=== PATIENT | female | born 1960 | race Caucasian/White ===

== ENCOUNTER 2023-11-11 14:15 | Inpatient (IN) | payer MEDICAID ==
[2023-11-11 14:36] LABS: BASOPHILS ABSOLUTE AUTO 0.07 K/uL (0.00-0.20); BASOPHILS PERCENT AUTO 1.1 % (0.0-2.0); EOSINOPHILS ABSOLUTE AUTO 0.05 K/uL (0.00-0.50); EOSINOPHILS PERCENT AUTO 0.8 % (0.0-5.0); HEMATOCRIT 44.8 % (34.0-46.0); HEMOGLOBIN 15.1 g/dL (11.7-15.5); LYMPHOCYTES ABSOLUTE AUTO 1.81 K/uL (0.50-3.50); LYMPHOCYTES PERCENT AUTO 27.8 % (10.0-50.0); MEAN CORPUSCULAR HEMOGLOBIN 30.9 pg (28.2-33.3); MEAN CORPUSCULAR HGB CONC 33.7 g/dL (31.7-36.0); MEAN CORPUSCULAR VOLUME 91.8 fL (84.0-98.0); MONOCYTES ABSOLUTE AUTO 0.42 K/uL (0.00-1.00); MONOCYTES PERCENT AUTO 6.5 % (2.0-14.0); NEUTROPHILS ABSOLUTE AUTO 4.16 K/uL (1.40-7.00); NEUTROPHILS PERCENT AUTO 63.8 % (45.0-80.0); PLATELET COUNT,PLT 268 K/uL (150-350); RED BLOOD CELL COUNT 4.88 M/uL (3.77-5.09); RED CELL DISTRIBUTION WIDTH 14.6 % (11.2-14.1); WHITE BLOOD CELL COUNT,WBC 6.5 K/uL (4.0-10.2)
[2023-11-11] MEDS: niCARdipine/Normal Saline 20 MG in Premix Bag 1 BAG IV SCH (14:50)
[2023-11-11 14:51] LABS: PROTHROMBIN TIME 10.2 SEC (9.0-11.1)
[2023-11-11 15:06] LABS: ALANINE AMINOTRANSFERASE,ALT 15 U/L (12-78); ALKALINE PHOSPHATASE 97 IU/L (46-116); ANION GAP 11.9 meq/L (7-15); ASPARTATE AMNIOTRANSFERASE,AST 14 U/L (15-37); BILIRUBIN TOTAL 0.2 mg/dL (0.2-1.0); BLOOD UREA NITROGEN,BUN 8 mg/dL (7-18); CALCIUM 9.4 mg/dL (8.5-10.1); CARBON DIOXIDE,CO2 25.1 mmol/L (21.0-32.0); CHLORIDE,CL 101 mmol/L (98-107); GLUCOSE RANDOM 94 mg/dL (70-99); MAGNESIUM 1.9 mg/dL (1.8-2.4); POTASSIUM,K 3.7 mmol/L (3.5-5.1); PRO B-TYPE NATRIUR PEPT,BNPPRO 483 pg/mL (0-125); PROTEIN TOTAL,TP 8.3 g/dL (6.4-8.2); SODIUM,NA 138 mmol/L (136-145)
[2023-11-11 15:08] LABS: ESTIMATED GFR 64 mL/min (>=60)
[2023-11-11 15:08] LABS: APPEARANCE,URINE CLEAR; BILIRUBIN,URINE NEGATIVE (NEGATIVE); COLOR,URINE YELLOW; GLUCOSE,URINE NEGATIVE (NEGATIVE); KETONES,URINE NEGATIVE (NEGATIVE); LEUKOCYTE ESTERASE,URINE TRACE (NEGATIVE); NITRITE,URINE NEGATIVE (NEGATIVE); OCCULT BLOOD,URINE TRACE-INTACT (NEGATIVE); PH,URINE 5.5 (5.0-9.0); PROTEIN,URINE NEGATIVE (NEGATIVE); UROBILINOGEN,URINE 0.2 E.U./dL (0.2-1.0)
[2023-11-11 15:21] LABS: BACTERIA,URINE FEW /HPF (NONE TO FEW); RBC,URINE 0-5 /HPF
[2023-11-11] MEDS ORDERED: Ketorolac 15 MG/ML SDV IVPUSH PRN (16:39)
[2023-11-11] MEDS ORDERED: Ondansetron 4 MG Tab.DIS PO PRN (16:39)
[2023-11-11] MEDS ORDERED: Acetaminophen 325 MG Tab PO PRN (16:39)
[2023-11-11] MEDS ORDERED: Melatonin 3 MG Tab PO PRN (16:39)
[2023-11-11] MEDS ORDERED: LORazepam 2 MG/ML SDV IV PRN (16:39)
[2023-11-11] MEDS: NIFEdipine 30 MG Tab.ER PO SCH ×2 (20:52→23:00)
[2023-11-12 07:40] LABS: BASOPHILS ABSOLUTE AUTO 0.07 K/uL (0.00-0.20); BASOPHILS PERCENT AUTO 1.1 % (0.0-2.0); EOSINOPHILS ABSOLUTE AUTO 0.11 K/uL (0.00-0.50); EOSINOPHILS PERCENT AUTO 1.7 % (0.0-5.0); HEMATOCRIT 41.8 % (34.0-46.0); LYMPHOCYTES ABSOLUTE AUTO 1.98 K/uL (0.50-3.50); LYMPHOCYTES PERCENT AUTO 30.2 % (10.0-50.0); MEAN CORPUSCULAR HEMOGLOBIN 30.8 pg (28.2-33.3); MEAN CORPUSCULAR HGB CONC 33.5 g/dL (31.7-36.0); MEAN CORPUSCULAR VOLUME 92.1 fL (84.0-98.0); MONOCYTES ABSOLUTE AUTO 0.56 K/uL (0.00-1.00); MONOCYTES PERCENT AUTO 8.5 % (2.0-14.0); NEUTROPHILS ABSOLUTE AUTO 3.84 K/uL (1.40-7.00); NEUTROPHILS PERCENT AUTO 58.5 % (45.0-80.0); PLATELET COUNT,PLT 252 K/uL (150-350); RED BLOOD CELL COUNT 4.54 M/uL (3.77-5.09); RED CELL DISTRIBUTION WIDTH 14.7 % (11.2-14.1); WHITE BLOOD CELL COUNT,WBC 6.6 K/uL (4.0-10.2)
[2023-11-12 08:03] LABS: CALCIUM 8.9 mg/dL (8.5-10.1); CARBON DIOXIDE,CO2 23.9 mmol/L (21.0-32.0); CREATININE 0.83 mg/dL (0.51-1.17); EST CRCL DRUG DOSING (CG) 71.8 mL/min; POTASSIUM,K 3.9 mmol/L (3.5-5.1)
[2023-11-12] MEDS: Lisinopril 10 MG Tab PO SCH (12:41)
[2023-11-12] MEDS: Hydrochlorothiazide 25 MG Tab PO SCH (16:54)
[2023-11-12] MEDS: Amoxicillin/Clavulanate K 875-125 MG Tab PO SCH (19:39)
[2023-11-12] MEDS: Sodium Chloride 0.9% 10 ML Syringe FLUSH PRN (19:40)
[2023-11-12] MEDS: NIFEdipine 30 MG Tab.ER PO ONE (22:36)
[2023-11-12] MEDS: NIFEdipine 30 MG Tab.ER ONE (22:42)
[2023-11-13] MEDS: hydrALAZINE 10 MG Tab PO ONE (01:44)
[2023-11-13 02:55] LABS: AMPHETAMINES SCREEN, URINE NEGATIVE (NEGATIVE); BARBITURATE SCREEN,URINE NEGATIVE (NEGATIVE); BENZODIAZEPINES SCREEN,URINE NEGATIVE (NEGATIVE); BUPRENORPHINE SCREEN,URINE NEGATIVE (NEGATIVE); COCAINE METABOLITES,URINE NEGATIVE (NEGATIVE); EDDP,URINE SCREEN NEGATIVE (NEGATIVE); METHAMPHETAMINES SCREEN, URINE NEGATIVE (NEGATIVE); OXYCODONE SCREEN,URINE NEGATIVE (NEGATIVE); TCA SCREEN,URINE NEGATIVE (NEGATIVE); THC SCREEN,URINE 50 NG/ML NEGATIVE (NEGATIVE)
[2023-11-13] MEDS: Chlorthalidone 25 MG Tab PO SCH (07:57)
[2023-11-13 08:12] LABS: BASOPHILS ABSOLUTE AUTO 0.06 K/uL (0.00-0.20); BASOPHILS PERCENT AUTO 0.9 % (0.0-2.0); EOSINOPHILS ABSOLUTE AUTO 0.08 K/uL (0.00-0.50); EOSINOPHILS PERCENT AUTO 1.2 % (0.0-5.0); HEMATOCRIT 41.5 % (34.0-46.0); HEMOGLOBIN 14.1 g/dL (11.7-15.5); LYMPHOCYTES ABSOLUTE AUTO 1.92 K/uL (0.50-3.50); LYMPHOCYTES PERCENT AUTO 29.7 % (10.0-50.0); MEAN CORPUSCULAR HEMOGLOBIN 30.9 pg (28.2-33.3); MEAN CORPUSCULAR VOLUME 90.8 fL (84.0-98.0); MONOCYTES PERCENT AUTO 9.3 % (2.0-14.0); NEUTROPHILS PERCENT AUTO 58.9 % (45.0-80.0); PLATELET COUNT,PLT 244 K/uL (150-350); RED BLOOD CELL COUNT 4.57 M/uL (3.77-5.09); RED CELL DISTRIBUTION WIDTH 14.2 % (11.2-14.1); WHITE BLOOD CELL COUNT,WBC 6.5 K/uL (4.0-10.2)
[2023-11-13 08:52] LABS: CALCIUM 9.2 mg/dL (8.5-10.1); CARBON DIOXIDE,CO2 24.7 mmol/L (21.0-32.0); CREATININE 0.98 mg/dL (0.51-1.17); EST CRCL DRUG DOSING (CG) 60.81 mL/min; POTASSIUM,K 3.7 mmol/L (3.5-5.1)
[2023-11-13] MEDS: Chlorthalidone 25 MG Tab PO ONE (15:31)
[2023-11-13] MEDS: NIFEdipine 30 MG Tab.ER PO ONE (15:31)
[2023-11-13] MEDS: Take Home: Amoxicillin/Clavulanate K 875-125 MG Tab, 6 Tab Pack PO ONE (15:32)
[2023-11-13] MEDS: Take Home: Lisinopril 10 MG, 4 Tab Pack PO ONE (15:33)
== END 2023-11-13 15:46 | disposition home or self-care (01) | DRG 305 ==
LOC: LL.ED 14:15 → LL.MS 15:43
PROVIDERS: ADMIT Physician Assistant; ATTEND Physician Assistant
DX: I16.0 Hypertensive urgency (principal); I16.1 Hypertensive emergency; J01.90 Acute sinusitis, unspecified; B96.89 Other specified bacterial agents as the cause of diseases classified elsewhere; I10 Essential (primary) hypertension; F17.210 Nicotine dependence, cigarettes, uncomplicated; Z86.711 Personal history of pulmonary embolism; Z79.899 Other long term (current) drug therapy
CPT/HCPCS: 36415; 70450; 71045; 80048; 80053; 80305-QW; 81001; 83735; 83880; 84443; 84484; 85025; 85379; 85610; 87086; 93005; 93010; 96365; 96366; 99223; 99233; 99239; 99285-25; A9270-GY; J3490